=== PATIENT | male | born 1975 | race Caucasian/White ===

== ENCOUNTER 2025-04-19 14:17 | Emergency (ER) | payer BC, OTHER ==
[~2025-04-19] VITALS: Ht 180.3 cm; Wt 136.8 kg
[2025-04-19] MEDS ORDERED: KETOROLAC 30 MG/ML 1 ML VIAL IM ONE (16:55)
[2025-04-19 17:18] LABS: BASO # 0.1 10^3/uL (0.0-0.2); BASO % 0.5 % (0.0-1.0); EOS # 0.1 10^3/uL (0.0-0.5); EOS % 1.1 % (0.0-3.0); LYMPH # 2.0 10^3/uL (1.5-5.0); LYMPH % 19.1 % (24.0-44.0); MONO # 0.9 10^3/uL (0.0-0.8); MONO % 8.8 % (2.0-8.0); NEUTROPHILS # 7.3 10^3/uL (1.5-8.5); NEUTROPHILS % 70.2 % (36.0-66.0); PLATELET COUNT, AUTOMATED 324 10^3/uL (150-450)
[2025-04-19] MEDS: ceFAZolin SODIUM 2 GM in DEXTROSE 5% (D5W) ADV/MINI-BAG 50 ML IV ONE (17:23)
[2025-04-19] MEDS: KETOROLAC 30 MG/ML 1 ML VIAL IV ONE (17:23)
[2025-04-19 17:43] LABS: CALCIUM LEVEL 9.2 MG/DL (8.5-10.1); CARBON DIOXIDE LEVEL 26 MMOL/L (20-31); CHLORIDE LEVEL 109 MMOL/L (98-107); CREATININE FOR GFR 0.87 MG/DL (0.70-1.30); GLOMERULAR FILTRATION RATE > 90.0 (>60); POTASSIUM SERUM 4.4 MMOL/L (3.5-5.1); SODIUM LEVEL 146 MMOL/L (136-145)
[2025-04-19] MEDS ORDERED: CEPH500C PO (17:48)
[2025-04-19] MEDS: LIDOCAINE 2% MDV 20 ML VIAL SC ONE (17:50)
[2025-04-19] MEDS ORDERED: PERC5TAB12 PO (18:41)
[2025-04-19 18:51] VITALS: BP 112/74; TEMP 98; O2SAT 97
[2025-04-19] MEDS: OXYCODONE/APAP 5MG/325MG(HOME DOSE PACK) PO ONE (19:12)
== END 2025-04-19 19:18 | disposition home or self-care (01) ==
LOC: M ED 14:17
DX: S61.041A Puncture wound with foreign body of right thumb without damage to nail, initial encounter (principal); Y92.019 Unspecified place in single-family (private) house as the place of occurrence of the external cause; Y93.9 Activity, unspecified; Y99.9 Unspecified external cause status; W29.4XXA Contact with nail gun, initial encounter; Z79.2 Long term (current) use of antibiotics; Z79.899 Other long term (current) drug therapy
CPT/HCPCS: 80048; 85025; 96365; 96372; 96375; 99284; J0688; J1885

== ENCOUNTER → 2025-04-25 | Outpatient (CLI) | payer BC ==
[~2025-04-25] MED LIST: CEPH500C PO; PERC5TAB12 PO
== END ==
LOC: M SOG 07:21
PROVIDERS: ATTEND Physician Assistant
DX: M79.644 Pain in right finger(s) (principal)